=== PATIENT | male | born 1960 | race Two or more races ===

== ENCOUNTER 2021-05-03 19:30 | Emergency (ER) | payer OTHER ==
[~2021-05-03] VITALS: Ht 165.1 cm; Wt 94.3 kg
--- NOTE | 2021-05-03 19:42 | NUR ---
PATIENT BIBRA 860 FROM HOME C/O ABD PAIN X 5 HRS MIDDLE ABD AREA. PATIENT IS A/O X 4, RR EVEN AND UNLABORED, NO SOB NOTED. PATIENT T OER BED 14 CONNECTED TO MONITORS.
[2021-05-03] MEDS ORDERED: MAG HYDROX/AL HYDROX/SIMETH 30 ML UDC PO ONE (21:00)
[2021-05-03] MEDS ORDERED: LIDOCAINE VISCOUS 2% UD 15 ML UDC MM ONE (21:00)
[2021-05-03] MEDS ORDERED: LIDOCAINE VISCOUS 2% UD 15 ML UDC ONE (21:11)
[2021-05-03] MEDS ORDERED: MAG HYDROX/AL HYDROX/SIMETH 30 ML UDC ONE (21:11)
[2021-05-03 21:23] LABS: BASOPHILS % (AUTO) 0.6 % (0.0-2.0); EOSINOPHILS % (AUTO) 3.6 % (0.0-6.0); HEMATOCRIT 39 % (39-51); HEMOGLOBIN 12.8 g/dL (13.5-17.5); LYMPHOCYTES # (AUTO) 1.8 K/uL (0.8-4.8); LYMPHOCYTES % (AUTO) 21.7 % (20.0-44.0); MEAN CORPUSCULAR HGB CONC 33 g/dl (31.0-36.0); MEAN CORPUSCULAR VOLUME 84 fL (80-96); MONOCYTES # (AUTO) 0.7 K/uL (0.1-1.30); NEUTROPHILS # (AUTO) 5.6 K/uL (1.8-8.9); NEUTROPHILS % (AUTO) 66.1 % (43.0-81.0); PLATELET COUNT (AUTO) 297 K/uL (150-450); WHITE BLOOD COUNT (AUTO) 8.5 K/uL (4.3-11.0)
[2021-05-03 21:36] LABS: BILIRUBIN,URINE NEGATIVE (NEGATIVE); COLOR,URINE YELLOW (YELLOW); LEUKOCYTE ESTERASE ,URINE SMALL (NEGATIVE); NITRITE, URINE NEGATIVE (NEGATIVE); PH,URINE 6.5 (5.0-8.0); PROTEIN,URINE NEGATIVE (NEGATIVE); UGLUCOSE NEGATIVE (NEGATIVE); UROBILINOGEN,URINE 0.2 EU/dL (0.2)
[2021-05-03 21:42] LABS: BACTERIA,URINE Few /HPF (None Seen); SQUAMOUS EPITHELIAL CELL,UR Few /HPF (None Seen)
[2021-05-03 21:50] LABS: CALCIUM, SERUM 9.5 mg/dL (8.5-10.1); CREATININE 1.1 mg/dL (0.6-1.3); POTASSIUM 3.5 mmol/L (3.5-5.1)
[2021-05-03 22:00] LABS: ALBUMIN 3.7 g/dL (3.4-5.0); BILIRUBIN,DIRECT 0.1 mg/dL (0.0-0.2); BILIRUBIN,TOTAL 0.3 mg/dL (0.2-1.0); TOTAL PROTEIN, SERUM 7.6 g/dL (6.4-8.2)
[2021-05-03] MEDS ORDERED: CT SWABBABLE VALVE TRANS SET 1 EA INFUS.SET MC ONE (22:06)
[2021-05-03] MEDS ORDERED: IOHEXOL-300 100 ML VIAL IV ONE (22:06)
[2021-05-03 22:30] VITALS: BP 131/71
[2021-05-04] MEDS ORDERED: CEPH500C2 PO
--- NOTE | 2021-05-04 00:09 | NUR ---
CONTACTED TAXI. WILL BE HERE IN 10 MINUTES
--- NOTE | 2021-05-04 00:52 | NUR ---
Patient discharged to home in stable condition. Written and verbal after care instructions given. Patient verbalizes understanding of instruction. Pt ambulatory with a steady gait. Pt was assisted to the taxi by the EMT.
== END 2021-05-04 00:55 | disposition home or self-care (01) ==
LOC: ER 19:37
DX: N39.0 Urinary tract infection, site not specified (principal); K29.70 Gastritis, unspecified, without bleeding; R10.13 Epigastric pain; I10 Essential (primary) hypertension; E11.9 Type 2 diabetes mellitus without complications; Z88.0 Allergy status to penicillin; Z79.84 Long term (current) use of oral hypoglycemic drugs; Z79.899 Other long term (current) drug therapy
CPT/HCPCS: 36415; 74177; 80048; 80076; 81001; 83690; 85025; 87086; 99285; Q9967

== ENCOUNTER 2021-05-07 16:58 | Emergency (ER) | payer OTHER ==
[~2021-05-07] VITALS: Ht 165.1 cm; Wt 90.7 kg
[~2021-05-07 16:58] MED LIST: CEPH500C2 PO
--- NOTE | 2021-05-07 17:10 | NUR ---
CHERYLE THIS 60YO MALE PATIENT VIA GURNEY. CAME WITH CC OF ABDOMINAL PAIN X2 DAYS AND GETS WORSE TODAY. PATIENT ALSO HAD LOOSE STOOL X3 (BUTTERY IN CONSISTENCY) PLACED COMFORTABLY ON ER BED. VITALS CHECKED.
--- NOTE | 2021-05-07 17:12 | NUR ---
DR FERGUSON AT BEDSIDE
[2021-05-07] MEDS ORDERED: HYDR25TA4 PO (17:14)
[2021-05-07] MEDS ORDERED: METF-440 PO (17:14)
--- NOTE | 2021-05-07 17:20 | NUR ---
IV CANNULA INSERTED ON LEFT AC USING G20. BLOOD SPECIMEN GIVEN TO LETTERER
[2021-05-07] MEDS ORDERED: LIDOCAINE VISCOUS 2% UD 15 ML UDC MM ONE (17:30)
[2021-05-07] MEDS ORDERED: PANTOPRAZOLE 40 MG VIAL IV ONE (17:30)
[2021-05-07] MEDS ORDERED: MAG HYDROX/AL HYDROX/SIMETH 30 ML UDC PO ONE (17:30)
[2021-05-07] MEDS ORDERED: IV NS 0.9% 1,000 ML BAG IV ONE (17:30)
[2021-05-07] MEDS ORDERED: ONDANSETRON HCL/PF 4 MG/2 ML VIAL IVP ONE (17:30)
--- NOTE | 2021-05-07 17:36 | NUR ---
PATIENT UNABLE TO PROVIDE URINE SAMPLE. MADE AWARE
--- NOTE | 2021-05-07 17:38 | NUR ---
WHEELED TO RADIOLOGY FOR CT ABDOMEN W/O CONTRAST
--- NOTE | 2021-05-07 18:02 | NUR ---
PATIENT UNABLE TO PROVIDE URINE SAMPLE. MADE AWARE
[2021-05-07 18:07] LABS: BASOPHILS % (AUTO) 0.2 % (0.0-2.0); EOSINOPHILS % (AUTO) 2.3 % (0.0-6.0); HEMATOCRIT 40 % (39-51); HEMOGLOBIN 13.2 g/dL (13.5-17.5); LYMPHOCYTES # (AUTO) 1.8 K/uL (0.8-4.8); LYMPHOCYTES % (AUTO) 16.1 % (20.0-44.0); MEAN CORPUSCULAR HGB CONC 33 g/dl (31.0-36.0); MEAN CORPUSCULAR VOLUME 83 fL (80-96); MONOCYTES # (AUTO) 0.8 K/uL (0.1-1.30); MONOCYTES % (AUTO) 6.8 % (2.0-12.0); NEUTROPHILS # (AUTO) 8.5 K/uL (1.8-8.9); NEUTROPHILS % (AUTO) 74.6 % (43.0-81.0); PLATELET COUNT (AUTO) 350 K/uL (150-450); RED BLOOD CELL COUNT(AUTO) 4.81 MIL/uL (4.5-6.0); WHITE BLOOD COUNT (AUTO) 11.4 K/uL (4.3-11.0)
[2021-05-07] MEDS ORDERED: MAG HYDROX/AL HYDROX/SIMETH 30 ML UDC ONE (18:09)
[2021-05-07] MEDS ORDERED: PANTOPRAZOLE 40 MG VIAL ONE (18:09)
[2021-05-07] MEDS ORDERED: ONDANSETRON HCL/PF 4 MG/2 ML VIAL ONE (18:09)
[2021-05-07] MEDS ORDERED: LIDOCAINE VISCOUS 2% UD 15 ML UDC ONE (18:10)
[2021-05-07 18:19] LABS: CALCIUM, SERUM 9.6 mg/dL (8.5-10.1); CREATININE 1.3 mg/dL (0.6-1.3); POTASSIUM 3.4 mmol/L (3.5-5.1)
[2021-05-07 18:25] LABS: ALBUMIN 4.1 g/dL (3.4-5.0); BILIRUBIN,DIRECT 0.1 mg/dL (0.0-0.2); BILIRUBIN,TOTAL 0.3 mg/dL (0.2-1.0); TOTAL PROTEIN, SERUM 8.3 g/dL (6.4-8.2)
--- NOTE | 2021-05-07 18:26 | NUR ---
PATIENT UNABLE TO PROVIDE URINE SAMPLE. MADE AWARE
[2021-05-07] MEDS ORDERED: ONDA4TAB11 PO (18:39)
[2021-05-07] MEDS ORDERED: DICY10CA37 PO (18:39)
[2021-05-07] MEDS ORDERED: FAMO-131 PO (18:39)
--- NOTE | 2021-05-07 18:52 | NUR ---
PATIENT STILL UNABLE TO PROVIDE URINE SAMPLE. SAID IT'S OK.
[2021-05-07 19:09] VITALS: BP 117/71
--- NOTE | 2021-05-07 19:09 | NUR ---
IV removed. Catheter intact and site benign. Pressure and 4x4 applied to site. No bleeding noted.Patient discharged to home in stable condition. Written and verbal after care instructions given. Patient verbalizes understanding of instruction.
== END 2021-05-07 19:12 | disposition home or self-care (01) ==
LOC: ER 17:02
DX: R10.13 Epigastric pain (principal); R19.7 Diarrhea, unspecified; I10 Essential (primary) hypertension; E11.9 Type 2 diabetes mellitus without complications; Z88.0 Allergy status to penicillin; Z79.84 Long term (current) use of oral hypoglycemic drugs; Z79.899 Other long term (current) drug therapy
CPT/HCPCS: 36415; 74176; 80048; 80076; 83690; 85025; 96361; 96374; 96375; 99284; C9113; J2405; J7030